=== PATIENT | male | born 2000 | race African-American/Black ===

== ENCOUNTER 2019-08-31 10:45 | Emergency (ER) | payer MEDICAID ==
[~2019-08-31] VITALS: Ht 182.9 cm; Wt 63.5 kg
[2019-08-31 11:03] VITALS: BP 117/73; Ht 182.9 cm; Wt 63.5 kg
== END 2019-08-31 12:33 | disposition home or self-care (01) ==
LOC: ED 10:45
DX: S93.402A Sprain of unspecified ligament of left ankle, initial encounter (principal); W50.0XXA Accidental hit or strike by another person, initial encounter; Y93.67 Activity, basketball; Y92.89 Other specified places as the place of occurrence of the external cause; Y99.8 Other external cause status